=== PATIENT | male | born 1980 | race African-American/Black ===

== ENCOUNTER 2018-02-16 03:15 | Emergency (ER) | payer OTHER ==
[2018-02-16 03:22] VITALS: BP 148/97
[2018-02-16] MEDS ORDERED: HYDROCODONE/ACETAMINOPHEN 5-325 MG (6 TAB/ER DISP) PO PRN (04:37)
[2018-02-16] MEDS ORDERED: CEPHALEXIN 500 MG CAPSULE PO ONE (04:37)
--- NOTE | 2018-02-16 04:40 | ER Document Report ---
ED General - General Chief Complaint: Foot Pain Stated Complaint: TOE INJURY Time Seen by Provider: 02/16/18 04:21 Notes: Patient is a 37-year-old male who presents to the ER due to toe pain. [place] did not sprayed it with a chemical to help prevent internal from going back. He said initially did not have any pain especially did a digital block of the toe but now that block is worn off and is severe pain over his toe. Denies any trauma or injuries. No other complaints at this time. No recent fevers. - Related Data Allergies/Adverse Reactions: No Known Allergies Allergy (Unverified 02/16/18 03:18) Past Medical History - Social History Smoking Status: Never Smoker Frequency of alcohol use: None Drug Abuse: None Family History: Reviewed & Not Pertinent Review of Systems - Review of Systems Notes: My Normal Review Basic REVIEW OF SYSTEMS: CONSTITUTIONAL : Denies fever, chills, or sweats. Denies recent illness. MUSCULOSKELETAL: Toe pain SKIN: Denies rash or skin lesions. ALL OTHER SYSTEMS REVIEWED AND NEGATIVE. Physical Exam - Vital signs Vitals: Temp Pulse Resp BP Pulse Ox 98.5 F 73 18 148/97 H 96 02/16/18 03:21 02/16/18 03:21 02/16/18 03:21 02/16/18 03:21 02/16/18 03:21 - Notes Notes: General Appearance: Well nourished, alert, cooperative, no acute distress, moderate obvious discomfort. Vitals: reviewed, See vital signs table. Extremities: , good pulses in all extremities, patient's right fifth toe does have the nail removed. There is some black over the skin where the sprayed the skin with a chemical to the patient's head was blacked helps prevent the toenail from returning. He does have some redness around the toe itself. This most likely more related to the recent trauma and is inflammation from recent trauma to his toe however secondary infection cannot be 100% ruled out. There is no redness spreading down the toe or into the foot. There is no evidence of abscess or purulent drainage. Toe is tender to touch. Good capillary refill in all toes of the foot. Skin: warm, dry, appropriate color, no rash Neuro: speech clear, oriented x 3, normal affect, responds appropriately to questions. Course - Re-evaluation Re-evalutation: 02/17/18 00:05 I suspect that the patient's pain is related to the fact he had this recent procedure in his toe and the digital block is since worn off. I will give him some pain medicine. He does have some redness. It is probably mostly related to inflammation from recent procedure but it is just little more redness than what I would fully expect unless the removal of the toe toenail was more traumatic than usual. Will place patient on antibiotics in case there is some residual associated infection. We will give him some pain medicine to help with pain. I strongly encourage him return to ER for spreading redness, fevers , worsening pain, feels unwell. I encouraged him follow-up on sunday with the doctor that did the procedure. Dictation of this chart was performed using voice recognition software; therefore, there may be some unintended grammatical errors. 02/17/18 00:07 - Vital Signs Vital signs: Temp Pulse Resp BP Pulse Ox 98.5 F 73 18 148/97 H 96 02/16/18 03:21 02/16/18 03:21 02/16/18 03:21 02/16/18 03:21 02/16/18 03:21 Discharge - Discharge Clinical Impression: Post-op pain Condition: Good Disposition: HOME, SELF-CARE Instructions: Oral Narcotic Medication ([facility]) Additional Instructions: Please take the antibiotics as prescribed. please follow up with the doctor who did your procedure on Sunday or Sunday. Please return to the ER immediately if you have spreading redness into your foot, fevers, or feel unwell. Change the dressing every day and apply a nonstick dressing. Prescriptions: Cephalexin Monohydrate [Keflex 500 mg Capsule] 500 mg PO Q6H 5 Days capsule
== END 2018-02-16 04:45 | disposition home or self-care (01) ==
LOC: ER 03:15
DX: G89.18 Other acute postprocedural pain (principal)
CPT/HCPCS: 99283